=== PATIENT | male | born 1975 | race Caucasian/White ===

== ENCOUNTER 2022-07-13 19:43 | Emergency (ER) | payer OTHER ==
[~2022-07-13] VITALS: Ht 188 cm; Wt 140.8 kg
[2022-07-13] MEDS ORDERED: NITR0.4S14 SL (19:55)
[2022-07-13] MEDS ORDERED: RANO500T2 PO (19:55)
[2022-07-13] MEDS ORDERED: OMEP1CAP73 PO (19:56)
[2022-07-13] MEDS ORDERED: METO25TA4 PO (19:56)
[2022-07-13 20:58] LABS: BASO # 0.1 10^3/uL (0.0-0.2); BASO % 0.9 % (0.0-1.0); EOS # 0.2 10^3/uL (0.0-0.5); EOS % 2.9 % (0.0-3.0); HEMOGLOBIN 15.9 g/dl (13.5-17.5); LYMPH # 2.7 10^3/uL (1.5-5.0); LYMPH % 34.7 % (24.0-44.0); MEAN CORPUSCULAR HEMOGLOBIN 29.2 pg (27.0-33.0); MEAN CORPUSCULAR HGB CONC 33.8 g/dl (32.0-36.5); MEAN CORPUSCULAR VOLUME 86.2 fl (80.0-96.0); MONO # 0.6 10^3/uL (0.0-0.8); MONO % 7.4 % (2.0-8.0); NEUTROPHILS # 4.2 10^3/uL (1.5-8.5); NEUTROPHILS % 53.6 % (36.0-66.0); PLATELET COUNT, AUTOMATED 232 10^3/uL (150-450); RED BLOOD COUNT 5.45 10^6/uL (4.30-6.10); WHITE BLOOD COUNT 7.8 10^3/uL (4.0-10.0)
[2022-07-13 21:22] LABS: LIPASE 35 U/L (12-53)
[2022-07-13 21:23] LABS: CK-MB VALUE MASS < 1.0 NG/ML (<3.6)
[2022-07-13 21:24] LABS: ALBUMIN 3.8 G/DL (3.2-5.2); ALKALINE PHOSPHATASE 72 U/L (46-116); ALT/SGPT 39 U/L (7.0-40); AST/SGOT 23 U/L (<34); BILIRUBIN,DIRECT 0.3 MG/DL (<0.4); BILIRUBIN,TOTAL 1.3 MG/DL (0.3-1.2); BLOOD UREA NITROGEN 10 MG/DL (9-23); CALCIUM LEVEL 9.1 MG/DL (8.5-10.1); CARBON DIOXIDE LEVEL 29 MMOL/L (20-31); CHLORIDE LEVEL 103 MMOL/L (98-107); CREATININE FOR GFR 1.09 MG/DL (0.70-1.30); GLOMERULAR FILTRATION RATE > 60.0 (>60); GLUCOSE, FASTING 109 MG/DL (60-100); POTASSIUM SERUM 4.3 MMOL/L (3.5-5.1); SODIUM LEVEL 138 MMOL/L (136-145); TOTAL PROTEIN 6.8 G/DL (5.7-8.2)
[2022-07-13 21:28] LABS: RSV AMPLIFICATION NEGATIVE (NEGATIVE)
[2022-07-13 21:30] LABS: CPK CREATINE PHOSPHOKINASE 145 U/L (46-171); MB/CK RELATIVE INDEX 0.68 (< OR =4)
[2022-07-13 22:23] LABS: CK-MB VALUE MASS 1.1 NG/ML (<3.6)
[2022-07-13 22:24] LABS: MB/CK RELATIVE INDEX 0.8 (< OR =4)
[2022-07-13 23:12] VITALS: BP 124/64
== END 2022-07-13 23:13 | disposition home or self-care (01) ==
LOC: M ED 19:43
DX: R07.89 Other chest pain (principal); I10 Essential (primary) hypertension; Z87.891 Personal history of nicotine dependence